=== PATIENT | male | born 1975 | race American Indian/Alaskan Native ===

== ENCOUNTER 2019-12-20 13:01 | Emergency (ER) | payer MEDICARE ==
--- NOTE | 2019-12-20 17:34 | Emergency Department Report ---
HPI - General Chief Complaint: Pain General Time Seen by Provider: 12/20/19 17:23 - HPI HPI: Room 17 The patient is a 44-year-old male present with a chief complaint of right inguinal pain. Patient states he was diagnosed with a right inguinal hernia a pproximately 4 weeks ago. Patient states he has not been able to see the surgeon because they keep moving back his appointment. Patient states over the past 3 weeks he has has intermittent pain in the right inguinal region. Patient states he notices swelling whenever lifting or coughing. Patient denies history of fever nausea or vomiting. Patient states his last bowel movement occurred yesterday ED Past Medical Hx - Past Medical History Previous Medical History?: Yes Hx Psychiatric Treatment: Yes (Bipolar) Additional medical history: Right inquinal hernia - Surgical History Past Surgical History?: No - Social History Smoking Status: Never Smoker Substance Use Type: None - Medications Home Medications: Home Medications Medication Instructions Recorded Confirmed Last Taken Type Docusate Sodium [Colace] 100 mg PO BID #60 capsule 12/20/19 Unknown Rx HYDROcodone/APAP 5-325 [[place] 1 - 2 each PO Q6HR PRN #14 tablet 12/20/19 Unknown Rx 5/325] ED Review of Systems ROS: Stated complaint: HERNIA PAIN Other details as noted in HPI Constitutional: no symptoms reported Respiratory: no symptoms reported Endocrine: no symptoms reported Gastrointestinal: denies: nausea, vomiting Genitourinary: other (Right groin pain) Physical Exam - Physical Exam Vital Signs: Vital Signs 12/20/19 13:26 Temperature 98.4 F Pulse Rate 90 Respiratory 20 Rate Blood Pressure 132/87 O2 Sat by Pulse 96 Oximetry Physical Exam: GENERAL: The patient is well-developed well-nourished male lying on stretcher not appearing to be in acute distress. [] HEENT: Normocephalic. Atraumatic. Extraocular motions are intact. Patient has moist mucous membranes. NECK: Supple. Trachea midline CHEST/LUNGS: Clear to auscultation. There is no respiratory distress noted. HEART/CARDIOVASCULAR: Regular. There is no tachycardia. There is no gallop rub or murmur. ABDOMEN: Abdomen is soft, nontender. Patient has normal bowel sounds. There is no abdominal distention. SKIN: There is no rash. There is no edema. There is no diaphoresis. NEURO: The patient is awake, alert, and oriented. The patient is cooperative. The patient has normal speech MUSCULOSKELETAL: There is no evidence of acute injury. GENITOURINARY: No inguinal swelling appreciated. Evidence of direct right inguinal hernia palpated during digital exam right inguinal canal ED Course Vital Signs 12/20/19 13:26 Temperature 98.4 F Pulse Rate 90 Respiratory 20 Rate Blood Pressure 132/87 O2 Sat by Pulse 96 Oximetry ED Medical Decision Making - Lab Data Result diagrams: 12/20/19 17:49 12/20/19 17:49 Laboratory Tests 12/20/19 12/20/19 17:49 17:49 WBC 4.8 RBC 4.72 Hgb 14.7 Hct 42.8 MCV 91 MCH 31 MCHC 34 RDW 13.8 Plt Count 242 Lymph % (Auto) 32.0 Burt % (Auto) 10.4 H Eos % (Auto) 5.5 H Baso % (Auto) 1.2 Lymph # (Auto) 1.5 Burt # (Auto) 0.5 Eos # (Auto) 0.3 Baso # (Auto) 0.1 Seg Neutrophils % 50.9 Seg Neutrophils # 2.4 Sodium 139 Potassium 3.9 Chloride 103.9 Carbon Dioxide 29 Anion Gap 10 BUN 16 Creatinine 0.8 Estimated GFR > 60 BUN/Creatinine Ratio 20 Glucose 106 H Calcium 9.2 Total Bilirubin < 0.20 AST 54 H ALT 95 H Alkaline Phosphatase 80 Total Protein 6.7 Albumin 3.8 L Albumin/Globulin Ratio 1.3 - Radiology Data Radiology results: report reviewed (CT abdomen pelvis), image reviewed (CT abdomen pelvis) [place] [address] Cat Scan Report Signed Patient: DARCI FREGOSO MR#: [id number] : 1975 Acct:[id number] Age/Sex: 44 / M ADM Date: 12/20/19 Loc: ED Attending Dr: Ordering Physician: ROMAN EDMONDS MD Date of Service: 12/20/19 Procedure(s): CT abdomen pelvis wo con Accession Number(s): [id number] cc: ROMAN EDMONDS MD CT ABDOMEN AND PELVIS WITHOUT CONTRAST INDICATION / CLINICAL INFORMATION: Right inguinal pain. History of hernia. TECHNIQUE: Axial CT images were obtained through the abdomen and pelvis without IV contrast. All CT scans at this location are performed using CT dose reduction for ALARA by means of automated exposure control. COMPARISON: None available. FINDINGS: LOWER CHEST: No significant abnormality. LIVER: No significant abnormality. GALLBLADDER: No significant abnormality. PANCREAS: No significant abnormality. SPLEEN: No significant abnormality. ADRENALS: No significant abnormality. KIDNEYS / URETERS: No significant abnormality. URINARY BLADDER: No significant abnormality. REPRODUCTIVE ORGANS: No significant abnormality. STOMACH / SMALL BOWEL: No significant abnormality. COLON: No significant abnormality. APPENDIX: No significant abnormality. PERITONEUM: No free fluid. No free air. No fluid collection. LYMPH NODES: No significant adenopathy. AORTA / ARTERIES: No significant abnormality. IVC / VEINS: No significant abnormality. SKELETAL SYSTEM: No significant abnormality. ADDITIONAL FINDINGS: There is trace fluid within the right inguinal canal. A knuckle of colon approaches the right inguinal region without herniation. IMPRESSION: 1. Trace fluid within the right internal canal without evidence of hernia. 2. No acute abdominopelvic abnormalities. Signer Name: Sterling Mullen MD Signed: 12/20/2019 6:27 PM Workstation Name: [id number] Transcribed By: SS Dictated By: STERLING MULLEN Electronically Authenticated By: STERLING MULLEN Signed Date/Time: 12/20/191826 DD/ 23 TD/TT: - Differential Diagnosis Right inguinal hernia Critical care attestation.: If time is entered above; I have spent that time in minutes in the direct care of this critically ill patient, excluding procedure time. ED Disposition Clinical Impression: Right inguinal hernia Disposition: DC-01 TO HOME OR SELFCARE Is pt being admited?: No Does the pt Need Aspirin: No Condition: Stable Instructions: Inguinal Hernia (ED) Additional Instructions: Return to the emergency department should you develop worsening symptoms, inability to tolerate food or liquids, high fever or any other concerns Prescriptions: Docusate Sodium [Colace] 100 mg PO BID #60 capsule HYDROcodone/APAP 5-325 [[place] 5/325] 1 - 2 each PO Q6HR PRN #14 tablet PRN Reason: Pain Referrals: COCO LEVINE MD [Staff Physician] - 3-5 Days (Dr. Levine is a surgeon. Please follow-up with him for further evaluation of your inguinal hernia) Time of Disposition: 18:39
[2019-12-20 18:21] LABS: Alanine Aminotransferase 95 units/L (7-56); Albumin 3.8 g/dL (3.9-5); BUN/Creatinine Ratio 20; Blood Urea Nitrogen 16 mg/dL (9-20); Calcium 9.2 mg/dL (8.4-10.2); Hemolysis Index 10
[2019-12-20 18:29] LABS: Basophils # (Auto) 0.1 K/mm3 (0.0-0.1); Basophils % (Auto) 1.2 % (0.0-1.8); Eosinophils # (Auto) 0.3 K/mm3 (0.0-0.4); Eosinophils % (Auto) 5.5 % (0.0-4.3); Hematocrit 42.8 % (35.5-45.6); Hemoglobin 14.7 gm/dl (11.8-15.2); Lymphocytes # (Auto) 1.5 K/mm3 (1.2-5.4); Mean Corpuscular HGB Conc 34 % (32-34); Mean Corpuscular Volume 91 fl (84-94); Monocytes # (Auto) 0.5 K/mm3 (0.0-0.8); Monocytes % (Auto) 10.4 % (0.0-7.3); Platelet Count 242 K/mm3 (140-440); Red Blood Count 4.72 M/mm3 (3.65-5.03); Red Cell Distribution Width 13.8 % (13.2-15.2)
--- NOTE | 2019-12-20 18:32 | Cat Scan Report ---
CT ABDOMEN AND PELVIS WITHOUT CONTRAST INDICATION / CLINICAL INFORMATION: Right inguinal pain. History of hernia. TECHNIQUE: Axial CT images were obtained through the abdomen and pelvis without IV contrast. All CT scans at [facility] are performed using CT dose reduction for [place] by means of automated exposure control. COMPARISON: None available. FINDINGS: LOWER CHEST: No significant abnormality. LIVER: No significant abnormality. GALLBLADDER: No significant abnormality. PANCREAS: No significant abnormality. SPLEEN: No significant abnormality. ADRENALS: No significant abnormality. KIDNEYS / URETERS: No significant abnormality. URINARY BLADDER: No significant abnormality. REPRODUCTIVE ORGANS: No significant abnormality. STOMACH / SMALL BOWEL: No significant abnormality. COLON: No significant abnormality. APPENDIX: No significant abnormality. PERITONEUM: No free fluid. No free air. No fluid collection. LYMPH NODES: No significant adenopathy. AORTA / ARTERIES: No significant abnormality. IVC / VEINS: No significant abnormality. SKELETAL SYSTEM: No significant abnormality. ADDITIONAL FINDINGS: There is trace fluid within the right inguinal canal. A knuckle of colon approac hes the right inguinal region without herniation. IMPRESSION: 1. Trace fluid within the right internal canal without evidence of hernia. 2. No acute abdominopelvic abnormalities. Signer Name: Napoleon Mullen MD Signed: 12/20/2019 6:27 PM Workstation Name: [id number]
[2019-12-20 19:22] VITALS: BP 118/72
== END 2019-12-20 19:19 | disposition home or self-care (01) ==
LOC: ED 13:01
DX: K40.90 Unilateral inguinal hernia, without obstruction or gangrene, not specified as recurrent (principal); F31.9 Bipolar disorder, unspecified; Z79.899 Other long term (current) drug therapy
CPT/HCPCS: 36415; 74176; 80053; 85025